=== PATIENT | female | born 1955 | race Caucasian/White ===

== ENCOUNTER 2016-12-14 19:50 | Emergency (ER) | payer OTHER ==
[~2016-12-14] VITALS: Ht 170.2 cm; Wt 83.0 kg
[~2016-12-14 19:50] MED LIST: ASPIRIN EC325 MG PO; CALCIUM + D 6001 TAB PO; LEVSIN0.125 MG PO; LISINOPRIL10 MG PO; MAGNESIUM OXID400 MG PO; METOPROLOL TART50 MG PO; NAPROSYN500 M1 PO; SIMVASTATIN10 MG PO; TRAMADOL50 MG PO
[2016-12-14] MEDS ORDERED: TRIAMTERENE-HC1 EAC2 PO (20:56)
[2016-12-14] MEDS ORDERED: AMLODIPINE BESY10 M1 PO (20:56)
[2016-12-14] MEDS ORDERED: ASPIRIN EC81 M1 PO (20:57)
[2016-12-14] MEDS ORDERED: FLECTOR1 EACH TOP (20:57)
[2016-12-14] MEDS ORDERED: METOPROLOL TART50 M1 PO (20:57)
--- NOTE | 2016-12-14 21:45 | RADIOLOGY REPORT ---
EXAMINATION: XR CHEST CLINICAL INFORMATION: Chest pain going to the upper back. COMPARISON: None TECHNIQUE: 2 views of the chest were obtained. FINDINGS: The lungs are well expanded. There is no focal consolidation, edema, or effusion. No pneumothorax. The cardiomediastinal silhouette is within normal limits. No acute osseous abnormality. IMPRESSION: No acute pulmonary findings. Normal appearance of the mediastinal silhouette.
--- NOTE | 2016-12-14 22:11 | ED CARDIAC/CP/PALPITATIONS ---
History of Present Illness General Chief Complaint: Neck/Upper Back Pain/Injury Stated Complaint: PAIN IN NECK AND UPPER BACK PAIN X 4DAYS Vital Signs & Intake/Output Vital Signs & Intake/Output Vital Signs Date Time Temp Pulse Resp B/P B/P Pulse O2 O2 Flow FiO2 Mean Ox Delivery Rate 12/14 2322 98.3 81 18 144/87 96 Room Air 12/14 2321 98 Room Air 12/14 2206 98.9 84 18 148/90 96 12/14 2026 150/88 12/14 2020 99.3 72 18 146/89 98 Room Air Allergies Coded Allergies: No Known Allergies (12/14/16) Triage Note: PT TO ED C/O MID/UPPER BACK PAIN FOR 4 DAYS. SAW PCP A COUPLE DAYS AGO, HAD A LYME TEST DONE THIS AM. STATES HAD "TEARING" CHEST PAIN 4 DAYS AGO, NOW HAS AN ACHE. HAS A "PAIN PATCH" TO BACK AT THIS TIME "BUT I CAN'T REACH TO PUT IT WHERE I NEED IT" NO CHANGE WITH MOVEMENT OR INSPIRATION. CLEANS HOUSES FOR A LIVING HPI: MS. Soto 61 YO F with PMH on HTN presented to ED with CC of chest pain that goes to right side iof neck and in upper back for last 4 days. Patient reports that she was cleaning the house when this shooting pain started in her chest that was going to right neck and upper back. The neck pain is shooting, 10/10, radiating to her upper back towards the right shoulder blade, no aggaravating or relieving factoras even though she tried a patch to relieve the pain. The chest pain is heaviness in left upper chest, 6/10, nonradiating, no aggaravating or relieving factors. She also reports that she is having intermittent light headedness. She is compliant to her medications for HTN. She also told that on Monday she saw her pcp for rash and she was suspecting Lyme disease and she ordered labs for her. She denied nausea, vomiting, sweating, dyspnea, fever, recent flu, leg swelling, abdominal pain , constipation, dysuria, vision changes, tingling and numbness. (JOSE STERLING,BACOVA) General Source: patient Exam Limitations: no limitations Reconcile Medications Amlodipine Besylate 10 MG TABLET 1 TAB PO DAILY BP (Reported) Aspirin (Ecotrin*) 81 MG TABLET. 1 TAB PO DAILY HEART/BLOOD (Reported) Diclofenac Epolamine (Flector) 1.3 % PATCH.TD12 1 PAT TOP DAILY PAIN ( Reported) Metoprolol Tartrate (Unknown Strength) TABLET (Unknown Dose) PO DAILY HEART/BP (Reported) Naproxen (Naprosyn) 500 MG TABLET 1 TAB PO BID PRN pain Oxycodone HCl/Acetaminophen (Percocet 5-325 MG Tablet) 5 MG-325 MG TABLET 1 TAB PO BID PRN pain Triamterene/Hydrochlorothiazid (Triamterene-Hctz 75-50 MG Tab) 75 MG-50 MG TABLET 1 TAB PO DAILY BP (Reported) Triage Nurses Notes Reviewed? yes Onset: Abrupt Duration: day(s): Timing: recent history (JHONATAN DUMAS DO) Past History Travel History Traveled to [place] past 21 day No Medical History Neurological: migraine Cardiovascular: hypertension CLERICAL ADJUDICATOR/Reproductive: fibroid Surgical History Surgical History: non-contributory Psychosocial History What is your primary language Yi Tobacco Use: Never used ETOH Use: occasional use Illicit Drug Use: denies illicit drug use (RISA GARCIA MD) Medical History Any Pertinent Medical History? see below for history Family History Hx Contributory? No (JHONATAN DUMAS DO) Review of Systems Review of Systems Constitutional: Reports: no symptoms. EENTM: Reports: no symptoms. Respiratory: Reports: no symptoms. Cardiovascular: Reports: chest pain. GI: Reports: no symptoms. Genitourinary: Reports: no symptoms. Musculoskeletal: Reports: neck pain. Skin: Reports: rash. Neurological/Psychological: Reports: no symptoms. (RISA GARCIA MD) Review of Systems Hematologic/Endocrine: Reports: no symptoms. Immunologic/Allergic: Reports: no symptoms. (JHONATAN DUMAS DO) Physical Exam Physical Exam General Appearance: no apparent distress, alert, awake Head: atraumatic Eyes: Bilateral: normal appearance, PERRL, EOMI. Neck: normal inspection Respiratory: normal breath sounds, chest non-tender, no respiratory distress Cardiovascular: regular rate/rhythm Gastrointestinal: normal bowel sounds, soft, non-tender Extremities: normal inspection Skin: intact, normal color, warm/dry (RISA GARCIA MD) Physical Exam Ears, Nose, Throat: normal ENT inspection Peripheral Pulses: 4+ radial (R), 4+ radial (L) Back: decreased range of motion Neurologic/Psych: no motor/sensory deficits, awake, alert, oriented x 3 Core Measures ACS in differential dx? No Severe Sepsis Present: No Septic Shock Present: No (PITER LIEBERMAN,JHONATAN Juarez) Progress Differential Diagnosis: AMI, aortic dissection, musculoskeletal pain, pulmonary embolism Plan of Care: Orders Procedure Date/time Status Telemetry/Trade Mark Examiner 12/14 2126 Active D-DIMER 12/14 2126 Complete TROPONIN LEVEL 12/15 2111 Complete CBC WITHOUT DIFFERENTIAL 12/15 2111 Complete BASIC METABOLIC PANEL 12/15 2111 Complete EKG 12/15 2027 Active Laboratory Tests 12/14/162201: Anion Gap 9, Estimated GFR 38 L, BUN/Creatinine Ratio 22.9, Glucose 121 H, Calcium 9.3, Troponin I < 0.01, D-Dimer High Sensitivty 409 H, CBC w Diff NO MAN DIFF REQ, RBC 4.53, MCV 92.0, MCH 31.8 H, RDW 12.3, MPV 7.0 L, Gran % 65.3 , Lymphocytes % 24.0, Monocytes % 7.5, Eosinophils % 2.7, Basophils % 0.5, Absolute Granulocytes 5.7, Absolute Lymphocytes 2.1, Absolute Monocytes 0.7 H, Absolute Eosinophils 0.2, Absolute Basophils 0, PUBS MCHC 34.6 According to the history and physical exam the lags and chest xray were ordered. The plan of care was discussed with patient and her chest xray was turned out negative. Patient was informed for that and i told her that we are waiting for d -dimer and trop-t. When these labs come back we go from there. Her d-dimer turned out positive. I informed Dr. Dumas and we both to the patient and Dr. Dumas explained to her that your screening test for blood clot is positive and we planned to run a chest CT scan to confirm the d-dimer result and look for the clot in lungs. but robin refused to stay in the hospital and she said give me the pain medication because i can't stay in the hospital anymore. Dr. Dumas explained all the risks and the benefits to her and advised her to see your pcp in a week and gave her instructions that if she feel short of breath, or worsening of chest pain come back to ED. She signed the AMA paper in my presence and took the prescription from Dr.Piter he left the ED. (RISA GARCIA MD) CXR Impression: no acute abnormality (RISA GARCIA MD) Radiology Impression: no acute abnormality Initial ED EKG: NSR (JHONATAN DUMAS DO) Departure Departure Disposition: LEFT AGAINST MEDICAL ADVICE Condition: Stable Clinical Impression Primary Impression: Pulmonary embolism Referrals: CIARA CEBALLOS MD (PCP/Family) Additional Instructions: Patient was informed about the abnormal d-dimer test and risks and benefits were discussed with her. Dr. Dumas advised her for chest CT can to look for the clot but the patient refused it. Patient was advised to come back to ED if she feel short of breath, or worsening of chest pain. Pt. was advised to see her pcp in a week. Pt. was told that HER D-dimers are positive and her condition could be life threatening but she decided to leave against the medical advice. Departure Forms: Customer Survey General Discharge Information (RISA GARCIA MD) Departure Prescriptions: Current Visit Scripts Oxycodone HCl/Acetaminophen (Percocet 5-325 MG Tablet) 1 TAB PO BID PRN pain #10 TAB Comments 12/14/16 I've seen and personally examined the patient and I agree with the safety intern's evaluation. She has back pain and left-sided chest pain over the past 3 days. No shortness of breath. EKG reveals normal sinus rhythm. She did have an elevated D-dimer. I discussed the need to obtain serial troponins and EKG and also to get a CTA to exclude pulmonary embolism. We discussed the risks and benefits of these tests. The patient decided to sign out AGAINST MEDICAL ADVICE. She will follow-up with her doctor this week or return to the emergency department if worse. (JHONATAN DUMAS DO) Critical Care Note Critical Care Note Critical Care Time: non-applicable (JHONATAN DUMAS DO)
[2016-12-14 22:22] LABS: ABSOLUTE BASOPHIL COUNT 0 /CUMM (0.0-0.2); ABSOLUTE EOSINOPHIL COUNT 0.2 /CUMM (0.0-0.7); ABSOLUTE GRANULOCYTE CT 5.7 /CUMM (1.4-6.5); ABSOLUTE LYMPH COUNT 2.1 /CUMM (1.2-3.4); ABSOLUTE MONOCYTE COUNT 0.7 /CUMM (0.10-0.60); BASOPHIL % 0.5 % (0.0-2.0); EOSINOPHIL % 2.7 % (0-5); GRANULOCYTE % 65.3 % (42.2-75.2); HEMATOCRIT 41.6 % (37-47); MEAN CORPUSCULAR HGB 31.8 PG (27.0-31.0); MEAN CORPUSCULAR HGB CONC 34.6 G/DL (33.0-37.0); PLATELET COUNT 313 /CUMM (130-400); RBC DISTRIBUTION WIDTH 12.3 % (11.5-14.5); RED BLOOD CELL CT 4.53 /CUMM (4.20-5.40); WHITE BLOOD CELL COUNT 8.7 /CUMM (4.8-10.8)
[2016-12-14] MEDS ORDERED: PERCOCET 5-3251 EACH PO (23:12)
[2016-12-14 23:23] VITALS: BP 144/87
== END 2016-12-14 23:24 | disposition left against medical advice (07) ==
LOC: ERH 19:50
PROVIDERS: Student in an Organized Health Care Education/Training Program
DX: I26.99 Other pulmonary embolism without acute cor pulmonale (principal); R07.9 Chest pain, unspecified
CPT/HCPCS: 93005; 93010